=== PATIENT | female | born 2000 | race Caucasian/White ===

== ENCOUNTER 2023-10-12 17:40 | Emergency (ER) | payer SELFPAY ==
[~2023-10-12] VITALS: Ht 165.1 cm; Wt 81.8 kg
[2023-10-12 18:01] VITALS: TEMP 98.4
[2023-10-12 19:13] LABS: URINE APPEARANCE CLOUDY (CLEAR/HAZY); URINE BLOOD 3+ (NEGATIVE); URINE COLOR YELLOW (YELLOW); URINE GLUCOSE NEGATIVE (NEGATIVE); URINE KETONE 3+ (NEGATIVE); URINE NITRATE NEGATIVE (NEGATIVE); URINE PROTEIN(semi-quant) 2+ (NEGATIVE)
[2023-10-12] MEDS ORDERED: CIPRO 500MG TA500 MG PO (19:22)
[2023-10-12 19:23] LABS: COLLECTION METHOD CLEAN CATCH
[2023-10-12] MEDS ORDERED: ZOFRAN ODT4 MG PO (19:23)
[2023-10-12] MEDS ORDERED: PYRIDIUM200 M1 PO (19:23)
[2023-10-12] MEDS ORDERED: Ciprofloxacin 500 MG TAB PO ONE (19:30)
[2023-10-12 20:02] VITALS: BP 123/83; PULSE 81
== END 2023-10-12 20:02 | disposition home or self-care (01) ==
LOC: COL.ER 17:40
PROVIDERS: Physician Assistant
DX: N12 Tubulo-interstitial nephritis, not specified as acute or chronic (principal); Z88.1 Allergy status to other antibiotic agents

== ENCOUNTER 2023-10-18 11:35 | Emergency (ER) | payer SELFPAY ==
[~2023-10-18] VITALS: Ht 165.1 cm; Wt 81.8 kg
[~2023-10-18 11:35] MED LIST: CIPRO 500MG TA500 MG PO; PYRIDIUM200 M1 PO; ZOFRAN ODT4 MG PO
[2023-10-18 11:52] VITALS: TEMP 98.2
[2023-10-18 14:24] LABS: BASO % 0.2 % (0.0-2.0); GRAN # 9.9 K/mm3 (1.4-6.5); GRAN % 76.6 % (42.2-75.2); HEMATOCRIT 45.4 % (37.0-47.0); HEMOGLOBIN 14.8 g/dl (12.5-16.0); LYMPH # 2.1 K/mm3 (1.2-3.4); LYMPH % 16.1 % (20.0-51.0); MEAN CELL VOLUME 88 fl (80.0-100.0); MEAN CORPUSCULAR HEMOGLOBIN 29 pg (27-31); MEAN CORPUSCULAR HGB CONC 33 g/dl (33.0-37.0); MEAN PLATELET VOLUME 9.1 fl (7.4-10.4); MONO # 0.9 K/mm3 (0.1-0.6); MONO % 6.7 % (1.7-9.3); PLATELET COUNT 392 K/mm3 (130-400); RED BLOOD COUNT 5.16 M/mm3 (4.10-5.30); REDCELL DISTRIBUTION WIDTH-CV 12.4 % (11.5-14.5)
[2023-10-18] MEDS ORDERED: Ondansetron 4 MG/2 ML VIAL IV PRN (14:30)
[2023-10-18] MEDS ORDERED: NS 1,000 ML IV ONE ×2 (14:30→15:45)
[2023-10-18] MEDS ORDERED: Morphine 4 MG/ML VIAL IV ONE (14:30)
[2023-10-18 14:46] LABS: ALBUMIN 4.1 g/dL (3.5-5.0); BILIRUBIN,TOTAL 0.5 mg/dL (0.2-1.2); CALCIUM 10.3 mg/dL (8.4-10.2); CREATININE, serum 2.38 mg/dL (0.57-1.11); TOTAL PROTEIN 7.9 g/dl (6.2-8.1)
[2023-10-18] MEDS ORDERED: ZOFRAN ODT4 MG PO ×2 (15:29→17:23)
[2023-10-18] MEDS ORDERED: Ondansetron 4 MG/2 ML VIAL IV ONE (15:45)
[2023-10-18 16:37] LABS: COLLECTION METHOD CLEAN CATCH
[2023-10-18 16:41] LABS: URINE APPEARANCE CLEAR (CLEAR/HAZY); URINE BLOOD NEGATIVE (NEGATIVE); URINE COLOR YELLOW (YELLOW); URINE GLUCOSE NEGATIVE (NEGATIVE); URINE KETONE NEGATIVE (NEGATIVE); URINE NITRATE NEGATIVE (NEGATIVE); URINE PROTEIN(semi-quant) NEGATIVE (NEGATIVE); URINE UROBILINOGEN 0.2 E.U/dL (0.2-1.0)
[2023-10-18] MEDS ORDERED: NORCO 325 MG-51 TAB PO (17:02)
[2023-10-18 17:07] VITALS: BP 116/74; PULSE 90
== END 2023-10-18 17:11 | disposition home or self-care (01) ==
LOC: COL.ER 11:35
PROVIDERS: Family Medicine; Personal Emergency Response Attendant
DX: K80.20 Calculus of gallbladder without cholecystitis without obstruction (principal)
CPT/HCPCS: J2270; J2405; J7030